=== PATIENT | female | born 1995 | race Caucasian/White ===

== ENCOUNTER 2017-07-07 20:55 | Observation (INO) | payer BC, SELFPAY ==
[2017-07-07 21:49] VITALS: BP 105/59; PULSE 85; RESP 20; TEMP 37.1; O2SAT 96; BMI 26.6
[2017-07-07 22:00] LABS: UTC Influenza A Antigen Negative (Negative); UTC Influenza B Antigen Negative (Negative)
--- NOTE | 2017-07-07 22:21 | HMH.EDUTC ---
[facility] [place] Disposition Clinical Impression: Abdominal pain Qualifiers: Abdominal location: unspecified location Qualified Code(s): R10.9 - Unspecified abdominal pain Disposition: Still a Patient Condition on Discharge: Good Time of Disposition: 22:43 (transfer to ER bed 11) Medical Decision Making Vital Signs: 07/07/17 21:49 Temperature 98.7 F Temperature Source Temporal Artery Scan Pulse Rate [Left Brachial] 85 Respiratory Rate 20 Blood Pressure [Left Arm] 105/59 Blood Pressure Mean [Left Arm] 74 Blood Pressure Source [Left Arm] Automatic Cuff Blood Pressure Position [Left Arm] Sitting 02 Sat by Pulse Oximetry 96 Oxygen Delivery Method Room Air - Lab Data Lab results reviewed: Yes: I reviewed the patient's lab results. Lab Results 07/07/17 21:40: Influenza Type A Ag Negative, Influenza Type B Ag Negative 07/07/17 22:32: Urine Color Yellow, Urine Appearance Clear, Urine pH 6.0, Ur Specific [place] 1.025, Urine Protein Negative, Urine Glucose (UA) Negative, Urine Ketones Negative, Urine Blood Negative, Urine Nitrate Negative, Urine Bilirubin Negative, Urine Urobilinogen 1, Ur Leukocyte Esterase Negative, Tst Clinic Negative - Zain Inquiry Pt receiving controlled substance: No - Reevaluation(s) Time: 10:35 Reevaluation #1: Discussed symptoms, exam, results and possible differentials again with patient. Agreeable to transfer to ER for further evaluation. Report called to Vanessa. Room 11 available. [facility] [place] HPI - General Stated complaint: Chills, fever, aches, stomach pain Time Seen by Provider: 07/07/17 22:21 Mode of Arrival: Ambulatory Source of Information: Patient Limitations: No Limitations Description of Symptoms (Recalled from Triage Doc. by RN): C/O FLU-LIKE SYMPTOMS HEENT Symptoms (Recalled from RN notes): No Resp Symptoms (Recalled from RN notes): Yes (FLU-LIKE SYMPTOMS) Skin Symptoms (Recalled from RN notes): No MS Symptoms (Recalled from RN notes): No Functional Status (Recalled from RN notes): N/A - History of Present Illness Provider Complaint: c/o subjective fever, aches, chills, dizziness, abdominal pain. Woke up this morning with mild abdominal pain. Didn't think much of it. 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 Abdominal pain progressing as well. Primarily on right side but when right side worsens, left side starts to hurt as well. Fluctuating in intensity. Took a nap when she got home. Was awoken due to abdominal pain. Has since vomited twice. Feeling feverish now and since being awake, dizziness with any movement. LMP 3 weeks ago. Hx of ovarian cysts but reports that pain was different and much worse. No UTI symptoms. Pain worse with movement. Spouse reports she couldn't even take the speed bumps on the way here it was that bad . Abdominal pain currently 10/12. Described as like a knife - Related Data Allergies Allergy/AdvReac Type Severity Reaction Status Date / Time Sulfa (Sulfonamide Allergy Mild I-RASH Verified 07/07/17 22:23 Antibiotics) [SULFA (SULFONAMIDE ANTIBIOTICS)] - Worker's Comp Is this a Worker's Comp case?: No [facility] History I have reviewed the patient's past medical history: Yes Medical History: Denies:: Cancer, Diabetes Mellitus Type 1, Diabetes Mellitus Type 2, Hypertension, MRSA Laterality Cases: Bilateral: Tonsillectomy Amputation: No Fractures: No - *Social History Smoking Status: Never smoker Alcohol Intake: never - Psychiatric History Expresses thoughts of harming self/others: None Suicide Plan Description: No Plan ROS Obtained: Yes Systems reviewed as appropriate & no additional complaints - Constitutional Constitutional: Reports as per HPI, Reports poor appetite - Eyes Eyes: Denies eye discharge - ENT Ears, Nose, Mouth, and Throat: Denies otalgia, Denies nasal congestion, Denies nasal discharge, Denies sore throat - Cardiovascular Cardiovascular: Denies chest pain, Denies irre
--- NOTE | 2017-07-07 22:31 | ED_ITS ---
[facility] [place] Clinical Impression: Abdominal pain Qualifiers: Abdominal location: unspecified location Qualified Code(s): R10.9 - Unspecified abdominal pain Disposition: Still a Patient Condition on Discharge: Good Time of Disposition: 22:43 (transfer to ER bed 11) Medical Decision Making Vital Signs: 07/07/17 21:49 Temperature 98.7 F Temperature Source Temporal Artery Scan Pulse Rate [Left Brachial] 85 Respiratory Rate 20 Blood Pressure [Left Arm] 105/59 Blood Pressure Mean [Left Arm] 74 Blood Pressure Source [Left Arm] Automatic Cuff Blood Pressure Position [Left Arm] Sitting 02 Sat by Pulse Oximetry 96 Oxygen Delivery Method Room Air - Lab Data Lab results reviewed: Yes: I reviewed the patient's lab results. Lab Results 07/07/17 21:40: Influenza Type A Ag Negative, Influenza Type B Ag Negative 07/07/17 22:32: Urine Color Yellow, Urine Appearance Clear, Urine pH 6.0, Ur Specific [place] 1.025, Urine Protein Negative, Urine Glucose (UA) Negative, Urine Ketones Negative, Urine Blood Negative, Urine Nitrate Negative, Urine Bilirubin Negative, Urine Urobilinogen 1, Ur Leukocyte Esterase Negative, Tst Clinic Negative - Zain Inquiry Pt receiving controlled substance: No - Reevaluation(s) Time: 10:35 Reevaluation #1: Discussed symptoms, exam, results and possible differentials again with patient. Agreeable to transfer to ER for further evaluation. Report called to Vanessa. Room 11 available. [facility] [place] - General Stated complaint: Chills, fever, aches, stomach pain Time Seen by Provider: 07/07/17 22:21 Mode of Arrival: Ambulatory Source of Information: Patient Limitations: No Limitations Description of Symptoms (Recalled from Triage Doc. by RN): C/O FLU-LIKE SYMPTOMS HEENT Symptoms (Recalled from RN notes): No Resp Symptoms (Recalled from RN notes): Yes (FLU-LIKE SYMPTOMS) Skin Symptoms (Recalled from RN notes): No MS Symptoms (Recalled from RN notes): No Functional Status (Recalled from RN notes): N/A - History of Present Illness Provider Complaint: c/o subjective fever, aches, chills, dizziness, abdominal pain. Woke up this morning with mild abdominal pain. Didn't think much of it. 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 Abdominal pain progressing as well. Primarily on right side but when right side worsens, left side starts to hurt as well. Fluctuating in intensity. Took a nap when she got home. Was awoken due to abdominal pain. Has since vomited twice. Feeling feverish now and since being awake, dizziness with any movement. LMP 3 weeks ago. Hx of ovarian cysts but reports that pain was different and much worse. No UTI symptoms. Pain worse with movement. Spouse reports she couldn't even take the speed bumps on the way here it was that bad . Abdominal pain currently 10/12. Described as like a knife - Related Data Allergies Allergy/AdvReac Type Severity Reaction Status Date / Time Sulfa (Sulfonamide Allergy Mild I-RASH Verified 07/07/17 22:23 Antibiotics) [SULFA (SULFONAMIDE ANTIBIOTICS)] - Worker's Comp Is this a Worker's Comp case?: No [facility] History I have reviewed the patient's past medical history: Yes Medical History: Denies:: Cancer, Diabetes Mellitus Type 1, Diabetes Mellitus Type 2, Hypertension, MRSA Laterality Cases: Bilateral: Tonsillectomy Amputation: No Fractures: No - *Social Hist
[2017-07-07 22:37] LABS: Apearance,Urine Clear (Clear); Color,Urine Yellow (Yellow)
[2017-07-07 22:38] LABS: Bilirubin,Urine Negative (Negative); Blood, Urine Negative (Negative); Glucose,Urine (UA) Negative (Negative); Ketones,Urine Negative (Negative); Protein,Urine Negative (Negative); Specific Gravity, Urine 1.025 (1.005-1.030); UTC Leukocyte Esterase,Urine Negative (Negative); UTC Nitrate,Urine Negative (Negative); UTC Pregnancy Test, Urine Negative (Negative); Urobilinogen,Urine 1 EU/dl (0.2)
--- NOTE | 2017-07-07 22:41 | PC.NURSE ---
PT BEING SENT TO ER FOR FURTHER EVALUATION.
[2017-07-07 22:48] VITALS: BP 130/74; PULSE 104; RESP 16; TEMP 37.1; O2SAT 98; BMI 26.6
--- NOTE | 2017-07-07 23:06 | HMH.EDNVD ---
ED Disposition Clinical Impression: Abdominal pain Qualifiers: Abdominal location: right lower quadrant Qualified Code(s): R10.31 - Right lower quadrant pain Acute appendicitis Qualifiers: Acute appendicitis type: unspecified acute appendicitis type Qualified Code(s): K35.80 - Unspecified acute appendicitis Disposition: Admitted As Inpatient Condition on Discharge: Good Instructions: DI for Acute Abdomen - Critical Care Critical Care Time: No Attestation: On 07/07/17, the high probability of a clinically significant, sudden or life threatening deterioration of the following system(s) required my full and direct attention, intervention and personal management. The time I documented below is in addition to time spent performing reported procedures but includes the following listed in this critical care notation. Medical Decision Making - Medical Records Medical records reviewed: Yes: I reviewed the patient's medical records. Vital Signs: 07/07/17 21:49 07/07/17 22:48 Temperature 98.7 F 98.8 F Temperature Source Temporal Artery Scan Oral Pulse Rate [Left Brachial] 85 104 H Respiratory Rate 20 16 Blood Pressure [Left Arm] 105/59 130/74 Blood Pressure Mean [Left Arm] 74 92 Blood Pressure Source [Left Arm] Automatic Cuff Blood Pressure Position [Left Arm] Sitting 02 Sat by Pulse Oximetry 96 98 Oxygen Delivery Method Room Air Room Air - Lab Data Lab results reviewed: Yes: I reviewed the patient's lab results. Lab Results 07/07/17 21:40: Influenza Type A Ag Negative, Influenza Type B Ag Negative 07/07/17 22:32: Urine Color Yellow, Urine Appearance Clear, Urine pH 6.0, Ur Specific [place] 1.025, Urine Protein Negative, Urine Glucose (UA) Negative, Urine Ketones Negative, Urine Blood Negative, Urine Nitrate Negative, Urine Bilirubin Negative, Urine Urobilinogen 1, Ur Leukocyte Esterase Negative, Tst Clinic Negative 07/07/17 23:00: WBC 12.0 H, RBC 4.36, Hgb 12.4, Hct 37.2, MCV 85.3, MCH 28.5, MCHC 33.4, RDW 13.1, Plt Count 188, MPV 8.6, Neut % (Auto) 68.4, Lymph % (Auto) 25.9, Hendry % (Auto) 4.8, Eos % (Auto) 0.8, Baso % (Auto) 0.2, Neut # (Auto) 8.2 H, Lymph # (Auto) 3.1, Hendry # (Auto) 0.6, Eos # (Auto) 0.1, Baso # (Auto) 0.0 07/07/17 23:00: Sodium 138, Potassium 3.5, Chloride 102, Carbon Dioxide 27, Anion Gap 12.5, BUN 13, Creatinine 0.83, Estimated Creat Clear 129, Estimated GFR 86, Est GFR ( Amer) 104, Glucose 98, Calcium 8.8, Total Bilirubin 0.6, AST 10 L, ALT 31, Alkaline Phosphatase 112, Total Protein 7.2, Albumin 3.7, Globulin 3.5 H, Albumin/Globulin Ratio 1.1, Amylase 42, Lipase 93 Result diagrams: 07/07/17 23:00 07/07/17 23:00 Orders (Tests/Meds): ORDERS Category Date Time Status CT abdomen pelvis wo con Stat Cat Scan 07/07/17 23:07 Taken - CT Data CT Scan: Abdomen, Pelvis Time Received: 00:[address] Reviewed: Yes: I have viewed the radiologist's interpretation Preliminary Findings: Abnormal - Physician Consults Physician Consulted: gina Reason -: Admission - Zain Inquiry Pt receiving controlled substance: No Nausea/Vomiting/Diarrhea HPI - General Chief complaint: Abdominal Pain Stated complaint: Chills, fever, aches, stomach pain Time Seen by Provider: 07/07/17 22:21 Mode of Arrival: Ambulatory Source of Information: Patient Limitations: No Limitations Description of Symptoms (Recalled from ER Triage Doc. by RN): C/O FLU-LIKE SYMPTOMS - History of Present Illness HPI Narrative: progressive abd pain with rt lower abd pain with dec po intake complaint: nausea, abdominal pain Onset (ago): day(s) Associated Abdominal Pain: Yes Location of pain: RLQ Severity: moderate - Related Data Home Medications Medication Instructions Recorded Confirmed No Known Home Medications [No 07/07/17 07/07/17 Known Home Medications] Allergies Allergy/AdvReac Type Severity Reaction Status Date / Time Sulfa (Sulfonamide Allergy Mild I-RASH Verifi
--- NOTE | 2017-07-07 23:07 | CT_ITS ---
CT abdomen pelvis wo con COMPARISON: CT scan abdomen pelvis 03/31/2017 HISTORY: Upper and lower abdominal pain some nausea and vomiting TECHNIQUE: Multiple axial scans obtained from hemidiaphragms to the pelvic floor and were performed without IV or oral contrast. Sagittal and coronal reformats were evaluated as well. FINDINGS: The lower lung perry are clear. The liver spleen stomach pancreas and gallbladder appear normal. The adrenal glands are normal. The kidneys are normal size and there are no calculi and is no obstructive uropathy. Small bowel appears normal. A retrocecal appendix is identified measuring 1 cm in diameter with very subtle periappendiceal haziness noted. There is a moderate amount stool in the ascending transverse and descending colon. There is a curious thin longitudinal stranding of soft tissue extending from the superior border of the urinary bladder to the umbilicus likely a urachal remnant. The uterus is normal. There is a small amount amount of fluid in the cul-de-sac slightly more than expected due to physiologic causes. IMPRESSION: 1. Somewhat subtle findings suggesting possibility of early appendicitis and suggest clinical correlation 2. Probable urachal remnant, I basically agree with the [facility] report.
[2017-07-07 23:16] LABS: Basophils % 0.2 % (0.1-2.0); Eosinophils # 0.1 K/mm3 (0.0-0.4); Eosinophils % 0.8 % (0.1-12.0); Hematocrit 37.2 % (37.0-47.0); Hemoglobin 12.4 g/dL (12.2-16.2); Lymphocytes # 3.1 K/mm3 (0.7-4.5); Lymphocytes % 25.9 K/mm3 (10-50); Mean Corpuscular HGB Conc 33.4 g/dL (31.8-35.4); Mean Corpuscular Hemoglobin 28.5 pg (27.0-31.2); Mean Corpuscular Volume 85.3 fl (81-99); Mean Platelet Volume 8.6 fl (7.4-10.4); Monocytes # 0.6 K/mm3 (0.1-1.0); Monocytes % 4.8 % (1.7-9.3); Neutrophils # 8.2 K/mm3 (1.8-7.8); Neutrophils % 68.4 % (37.0-80.0); Platelet Count 188 K/mm3 (142-424); Red Blood Count 4.36 M/mm3 (4.20-5.40); Red Cell Distribution Width 13.1 % (11.5-17.5)
[2017-07-07 23:32] LABS: Alanine Aminotransferase 31 U/L (12-78); Albumin Level 3.7 gm/dL (3.4-5.0); Albumin/Globulin Ratio 1.1 (1.1-1.8); Alkaline Phosphatase 112 U/L (46-116); Amylase 42 U/L (25-125); Anion Gap 12.5 mEq/L (5-15); Aspartate Amino Transferase 10 U/L (15-37); Bilirubin,Total 0.6 mg/dL (0.2-1.0); Blood Urea Nitrogen 13 mg/dL (7-18); Calcium 8.8 mg/dL (8.5-10.1); Carbon Dioxide 27 mmol/L (21.0-32.0); Chloride 102 mmol/L (98-107); Creatinine Clearance Estimated 129 mL/min (0-300); Creatinine,Serum 0.83 mg/dL (0.55-1.02); Estimated Glomerular Filt Rate 86 ml/min (>60); GFR (African American) 104 ML/MIN (>60); Globulin 3.5 gm/dl (1.3-3.2); Glucose 98 mg/dL (74-106); Lipase 93 u/L (73-393); Potassium 3.5 mmoL/L (3.5-5.1); Sodium 138 mmol/L (136-145); Total Protein,Serum 7.2 gm/dL (6.4-8.2)
[2017-07-08] VITALS (25 sets, daily range): BP systolic 92–149; BP diastolic 50–78; PULSE 54–94; RESP 14–18; TEMP 36.1–43; O2SAT 95–100; BMI 26.3
--- NOTE | 2017-07-08 00:01 | PC.NURSE ---
DANIELLE CALLED, DR CHISHOLM PAGED
--- NOTE | 2017-07-08 00:05 | PC.NURSE ---
DR WHITE SPEAKING WITH DR CHISHOLM.
--- NOTE | 2017-07-08 04:06 | PC.NURSE ---
PATIENT ADMITTED THIS SHIFT WITH ABD PAIN. SHE SEEMS TO HAVE RESTED WELL SINCE SHE GOT TO THE FLOOR. SHE HAS C/O NAUSEA X1 AND RECEIVED PRN ZOFRAN, WHICH HELPED. SHE ALSO HAS C/O ABD PAIN X1 RATING IT A 6/10 AND JUST RECENTLY RECEIVED PRN PAIN MEDICATION, WHICH WILL BE REASSESSED SHORTLY. PATIENT IS CURRENTLY NPO. SHE IS RESTING IN BED WITH EYES CLOSED AND SIGNIFICANT OTHER AT BEDSIDE AT THIS TIME. NO OTHER PROBLEMS NOTED. VSS. WILL CONTINUE TO MONITOR. SAFETY MEASURES IN PLACE, CALL LIGHT IN REACH.
--- NOTE | 2017-07-08 06:52 | P.HP_ITS ---
HPI HPI: Patient is a pleasant 21-year-old white female. She states that yesterday she had felt generally ill. She described some fevers and chills. She had tried to take a nap midday yesterday and then awoke with sharp stabbing abdominal pain. This is mostly in the upper abdomen. Throughout the day yesterday became more localized to the right abdomen. She presented to the emergency department in the very late evening yesterday on 07/07/17. She was found to have a mild leukocytosis and CT scan without contrast revealed findings consistent with acute appendicitis with a 1 cm retrocecal appendix with thickening of the wall and periappendiceal stranding. Patient was admitted for inpatient management and planned appendectomy. [facility] History I have reviewed the patient's past medical history: Yes Medical History: Denies:: Cancer, Diabetes Mellitus Type 1, Diabetes Mellitus Type 2, Hypertension, Internal Pacemaker, MRSA Laterality Cases: Bilateral: Tonsillectomy Other Surgeries: No: Pacemaker Amputation: No Fractures: No - *Social History Educational Level: Completed College Smoking Status: Never smoker Alcohol Intake: never Occupational Status: employed Housing: house Household Members: spouse - Psychiatric History Expresses thoughts of harming self/others: None Suicide Plan Description: No Plan *Family Hx:: Bleeding Disorder, Diabetes, Stroke, Thyroid Disorder Review of Systems - Constitutional Reports body ache(s), Reports chills, Reports fever(s) - Eyes Denies change in vision - ENT Denies dizziness - *Cardiovascular Denies chest pain - *Respiratory Denies shortness of breath - *Gastrointestinal Reports abdominal pain, Reports bloating - *Genitourinary Denies abnormal periods - *Musculoskeletal Denies abnormal walking - *Neurologic Denies headache(s) Meds Home Medications Medication Instructions Recorded Confirmed Type No Known Home Medications [No 07/07/17 07/07/17 History Known Home Medications] Allergies Allergy/AdvReac Type Severity Reaction Status Date / Time Sulfa (Sulfonamide Allergy Mild I-RASH Verified 07/07/17 22:23 Antibiotics) [SULFA (SULFONAMIDE ANTIBIOTICS)] Exam Vital signs and Labs for Last 24 Hours: Temp Pulse Resp BP Pulse Ox 98.9 F 91 H 16 101/60 98 07/08/17 04:03 07/08/17 04:03 07/08/17 04:03 07/08/17 04:03 07/08/17 04:03 I & O for Last 24 hours: Intake & Output 07/05/17 07/06/17 07/07/17 07/08/17 11:59 11:59 11:59 11:59 Weight 170 lb - Constitutional no acute distress - *Routine Respiratory Exam Present: CTA bilaterally - *Routine Cardiovascular Exam Present: RRR, Normal S1, Normal S2 - *Routine Abdominal Exam Present: soft, tenderness, distended Assessment and Plan - Assessment and plan all Dx Assessment and Plan for all problems:: Patient has signs and symptoms with radiographic evidence consistent with acute appendicitis. Plan for appendectomy this morning. Attempted laparoscopic with possible open.
--- NOTE | 2017-07-08 06:52 | PC.NURSE ---
called earlier stating that he wanted to do surgery on this patient at 0730 this am.He asked that I let surgery team know.Fer Kapoor,Ekta Boucher, and Luann Mcguire notified.Luann stated that Victoria would be innovations paraprofessional at 0700.She would text her and let her know of the surgery.
--- NOTE | 2017-07-08 06:55 | P.PN_ITS ---
[facility] Anesthesia Checklist - Patient Identification Patient Identification: Arm Band, Verbal (Name & ) - Structural Data Admitted From: Inpatient Planned Operative Procedure/s: appy Consent for Planned Operative Procedure(s) Verified: Yes Verified Documents: Surgical Consent - Chart Verification Results Verified: CBC, BMP - Additional verifications Patient : No Anesthesia Reactions: No Hx Blood Transfusions: No Blood Transfusion Reaction: No Cephalosporin Allergy: No Previous Colonoscopy: No - Cardiovascular Assessment Heart Sounds: S1 & S2 Pulse Strength: Baseline Pulse Rhythm: Regular - Airway Assessment C-Spine Mobility Assessed: Yes TMJ Mobility Assessed: Yes Dentition: Good Dentition - Neurological Assessment Level of Consciousness: Awake, Alert, Appropriate Hx Seizures: No Numbness or tingling in extremities: No - Anesthesia Plan Anesthesia Risk discussed: Yes Anesthesia Type: General [facility] Anesthesia HX I have reviewed the patient's past medical history: Yes Medical History: Denies:: Cancer, Diabetes Mellitus Type 1, Diabetes Mellitus Type 2, Hypertension, Internal Pacemaker, MRSA Laterality Cases: Bilateral: Tonsillectomy Other Surgeries: No: Pacemaker Amputation: No Fractures: No *Family Hx:: Bleeding Disorder, Diabetes, Stroke, Thyroid Disorder
[2017-07-08 07:41] LABS: Basophils % 0.2 % (0.1-2.0); Eosinophils # 0.1 K/mm3 (0.0-0.4); Eosinophils % 0.9 % (0.1-12.0); Hematocrit 34.1 % (37.0-47.0); Hemoglobin 11.3 g/dL (12.2-16.2); Lymphocytes # 2.9 K/mm3 (0.7-4.5); Mean Corpuscular HGB Conc 33.1 g/dL (31.8-35.4); Mean Corpuscular Hemoglobin 28.4 pg (27.0-31.2); Mean Corpuscular Volume 85.9 fl (81-99); Mean Platelet Volume 8.4 fl (7.4-10.4); Monocytes # 0.5 K/mm3 (0.1-1.0); Monocytes % 5.8 % (1.7-9.3); Neutrophils # 4.2 K/mm3 (1.8-7.8); Neutrophils % 55.1 % (37.0-80.0); Platelet Count 157 K/mm3 (142-424); Red Blood Count 3.97 M/mm3 (4.20-5.40); Red Cell Distribution Width 13.3 % (11.5-17.5); White Blood Count 7.6 K/mm3 (4.8-10.8)
[2017-07-08 07:42] LABS: Anion Gap 8.2 mEq/L (5-15); Blood Urea Nitrogen 12 mg/dL (7-18); Carbon Dioxide 28 mmol/L (21.0-32.0); Chloride 103 mmol/L (98-107); Creatinine Clearance Estimated 141 mL/min (0-300); Creatinine,Serum 0.76 mg/dL (0.55-1.02); Estimated Glomerular Filt Rate 95 ml/min (>60); GFR (African American) 115 ML/MIN (>60); Glucose 93 mg/dL (74-106); Potassium 3.2 mmoL/L (3.5-5.1); Sodium 136 mmol/L (136-145)
--- NOTE | 2017-07-08 07:53 | PC.NURSE ---
pt off unit in surgery at this time.
--- NOTE | 2017-07-08 08:34 | P.OP_ITS ---
Date of procedure: 07/08/17 Pre-op Diagnosis:: Acute appendicitis Post-op diagnosis:: same Procedure performed:: Laparoscopic appendectomy Surgeon:: Lyle Cerrato MD AUTO TECHNICIAN:: Charlie Kapoor Anesthesia: GLO Estimated blood loss (mL): 10 Clinical Note:: Patient is a pleasant 21-year-old white female. Yesterday she felt generally ill. She did have some fevers and chills. She thought she may have the flu. She went to work and upon returning from work took a nap. She awoke with sharp stabbing knifelike pain in the upper abdomen. This persisted and localized to the right abdomen. She presented to the urgent treatment center initially and then was transferred to the ER in the very late evening of 07/07/17. She underwent workup including CT scan and blood work. She is found to have a mild leukocytosis. CT scan without contrast revealed findings of acute appendicitis with a retrocecal appendix. She was admitted for inpatient management and planned appendectomy. Operative findings:: Patient had a thickened inflamed appendix and a non-retrocecal location. Mostly mid body of the appendix was markedly inflamed. Operative note:: Consent was obtained and patient was taken to the operating room. She was given preoperative intravenous antibiotics. She was positioned in a supine position. General anesthesia was induced via endotracheal tube. Goodson catheter was placed. Abdomen was prepped and draped. Subumbilical skin incision was made and while performing abdominal wall lift Veress needle was inserted. CO2 pneumoperitoneum was achieved to 15 mmHg. 10/12 mm trocar was inserted at the umbilicus. Intraperitoneal contents were visualized. She was positioned in Trendelenburg and left side down. 5 mm trocar was inserted in the suprapubic location. 5 mm trocar was inserted in the right upper abdomen. 10 mm laparoscope was replaced with the 5 mm 30? laparoscope. The appendix was easily identified at the tip of the cecum. It was grasped with an endoscopic Rikki. Mesoappendix was divided with a [employer] ultrasonic harmonic zainab with care taken to coagulate the appendiceal artery in the process. Dissection was carried down to the base of the appendix. The appendix was amputated at its base with an endoscopic SOLOMON linear cutting stapling device. The appendix was placed within an Endo Catch retrieval device and removed from the peritoneal cavity via the umbilical trocar site. Pericecal location and pelvis were irrigated and aspirated until clear. Trochars were removed. CO2 pneumoperitoneum was evacuated. Fascia at the umbilicus was closed with a 0 Vicryl suture. Local anesthetic was infiltrated. Skin incisions were closed with 4-0 Monocryl in a subcuticular fashion. Steri-Strips and clean dry sterile dressings were applied. Pathology: other (Appendix) Condition: stable Disposition: PACU Specimens:: Appendix Complications:: None immediate
--- NOTE | 2017-07-08 08:37 | HMH.ANESI ---
[facility] Anesthesia Record Part I Intake, IV Amount: 700 Estimated blood loss (mL): 10 Urine output (mL): 25 Blood Products used (#): none Blood Pressure: 149/78 SaO2: 95 Pulse Rate: 84 Respiratory Rate: 18 Temperature: 97.0 F Patient is:: Drowsy Stable to PACU at:: 08:36
--- NOTE | 2017-07-08 08:38 | HMH.ANESII ---
[facility] Anesthesia Record Part II Discharge Time: 09:06 Destination: Nursing Department PACU nurse assessment reviewed?: Yes Patient Condition:: Good Anesthesia Complications:: None
--- NOTE | 2017-07-08 08:59 | SUR.OPER ---
0825-cleary catheter removed at this time.
[2017-07-08 10:10] LABS: Microscopic, Urine URINE MICROSCOPIC (MICROSCOPIC)
[2017-07-08 10:14] LABS: Appearance,Urine SL CLOUDY (Clear); Bilirubin,Urine Negative (Negative); Blood, Urine TRACE-L (Negative); Color,Urine YELLOW (Yellow); Glucose,Urine (UA) Negative (Negative); Ketones,Urine Negative (Negative); Leukocyte Esterase,Urine Negative (Negative); Nitrate,Urine Negative (Negative); PH,Urine 5.5 (5.0-8.5); Protein,Urine Negative (Negative); Specific Gravity, Urine >= 1.030 (1.005-1.030); Urobilinogen,Urine 0.2 EU/dl (0.2)
[2017-07-08 10:24] LABS: Bacteria,Urine 4+ /lpf; Mucus,Urine 4+ /lpf
--- NOTE | 2017-07-08 13:39 | P.CONPHA_ITS ---
[facility] Pharmacy VTE Monitoring - Patient Demographics Admission date: 07/08/17 Report Date: 07/08/17 Time: 13:38 Allergies/Adverse Reactions: Patient Allergies Sulfa (Sulfonamide Antibiotics) [SULFA (SULFONAMIDE ANTIBIOTICS)] Allergy (Mild , Verified 07/07/17 22:23) I-RASH Height: 1.7 m Weight: 77.111 kg Patient Problems: Current Active Problems Abdominal pain (Acute) Acute appendicitis (Acute) - VTE Risk Labs: VTE Related Lab Results Hgb 11.3 g/dL (12.2-16.2) L 07/08/17 07:20 Hct 34.1 % (37.0-47.0) L 07/08/17 07:20 Plt Count 157 K/mm3 (142-424) 07/08/17 07:20 BUN 12 mg/dL (7-18) 07/08/17 07:20 Creatinine 0.76 mg/dL (0.55-1.02) 07/08/17 07:20 Estimated Creat Clear 141 mL/min (0-300) 07/08/17 07:20 Was VTE Risk Assessment Performed: Yes VTE Score: 0 VTE Risk Level: Very Low Risk - Prophylaxis VTE Prophylaxis Ordered?: Yes Types of VTE Prophylaxis: TEDS Knee High Location of Applied Device: Bilateral Lower Extremeties
[2017-07-09] VITALS: BP 95/52; PULSE 97; RESP 20; TEMP 36.8; O2SAT 99
[2017-07-09 04:00] VITALS: BP 96/41; PULSE 63; RESP 18; TEMP 36.7; O2SAT 97
--- NOTE | 2017-07-09 05:38 | PC.NURSE ---
PATIENT HAS SLEPT WELL THIS SHIFT. DRESSINGS X3 TO ABD CDI. SHE HAS C/O PAIN X2. FIRST C/O PAIN SHE RECEIVED PRN MORPHINE WHICH SHE STATED ONLY LASTED ABOUT 1 HOUR. HER SECOND C/O PAIN SHE RECEIVED PRN NORCO AND HASN'T HAD ANY MORE C/O PAIN SINCE. PATIENT AMBULATES TO BATHROOM WITH STANDBY ASSIST AND DOES WELL. PATIENT'S BP HAS RAN SLIGHTLY HYPOTENSIVE THROUGHOUT SHIFT, BUT HAS BEEN CONSISTANT. PATIENT IS CURRENTLY IN BED ASLEEP. NO OTHER PROBLEMS NOTED AT THIS TIME. VSS. WILL CONTINUE TO MONITOR. SAFETY MEASURES IN PLACE, CALL LIGHT IN REACH.
[2017-07-09 08:00] VITALS: BP 95/52; PULSE 80; RESP 18; TEMP 36.7; O2SAT 98
[2017-07-09 09:18] VITALS: O2SAT 98
--- NOTE | 2017-07-09 10:40 | HMH.DCSUM ---
General - General Admission date: 07/08/17 Discharge date: 07/09/17 HPI HPI: Patient is a pleasant 21-year-old white female. In the morning of 07/07/17 she felt generally ill. She described some fevers and chills. After work she had tried to take a nap and then awoke with sharp stabbing abdominal pain. This was mostly in the upper abdomen. Throughout the day yesterday became more localized to the right abdomen. She presented to the emergency department in the very late evening on 07/07/17. She was found to have a mild leukocytosis and CT scan without contrast revealed findings consistent with acute appendicitis with a 1 cm retrocecal appendix with thickening of the wall and periappendiceal stranding. Patient was admitted for inpatient management and planned appendectomy. Objective Vital signs: Temp Pulse Resp BP Pulse Ox 98.0 F 80 18 95/52 98 07/09/17 08:00 07/09/17 08:00 07/09/17 08:00 07/09/17 08:00 07/09/17 08:00 no acute distress - *Routine Cardiovascular Exam Present: RRR - *Routine Abdominal Exam Present: soft, tenderness Hospital Course Hospital Course: Patient was admitted after being seen in the emergency department in the very skid man hours of 07/08/17. He was given intravenous antibiotics. Early the following morning, a few hours after admission, she was taken to the operating room and underwent laparoscopic appendectomy. She was found to have a distended indurated acutely inflamed appendix. Please see operative dictation for complete details. Postoperatively she was admitted for continuation of perioperative antibiotics. She is given a bland diet. Her previously noted bloating and resolved and she tolerated bland diet without any nausea. She was continued on perioperative Unasyn. The following morning she was feeling well. Arrangements were made for discharge home at this time. Results Labs on day of discharge: Preliminary micro results at discharge 07/08/17 07:35 Urine Culture - Preliminary Urine,[place] NO GROWTH AFTER 24 HOURS DS: Diagnosis - Discharge Diagnosis (1) Acute appendicitis Status: Acute Meds Home Medications Medication Instructions Recorded Confirmed Type No Known Home Medications [No 07/07/17 07/07/17 History Known Home Medications] Allergies Allergy/AdvReac Type Severity Reaction Status Date / Time Sulfa (Sulfonamide Allergy Mild I-RASH Verified 07/07/17 22:23 Antibiotics) [SULFA (SULFONAMIDE ANTIBIOTICS)] Discharge Plan - Patient Discharge Instructions ACTIVITY: No heavy lifting DIET: advance to your usual diet - Follow up Plan Follow up with: Lyle Cerrato MD [Staff Physician] - 2 weeks Disposition: Home, Self-Longterm Medications: Home Medications Medication Instructions Recorded Confirmed Type No Known Home Medications [No 07/07/17 07/07/17 History Known Home Medications] Prescriptions/Medication Reconciliation: New Hydrocod/Acet 5/325 mg [[place] 5/325mg tablet] 1 - 2 tab PO Q6HP PRN #21 tab PRN Reason: Moderate Pain Continue No Known Home Medications [No Known Home Medications]
--- NOTE | 2017-07-09 10:44 | P.DS_ITS ---
General - General Admission date: 07/08/17 Discharge date: 07/09/17 HPI HPI: Patient is a pleasant 21-year-old white female. In the morning of 07/07/17 she felt generally ill. She described some fevers and chills. After work she had tried to take a nap and then awoke with sharp stabbing abdominal pain. This was mostly in the upper abdomen. Throughout the day yesterday became more localized to the right abdomen. She presented to the emergency department in the very late evening on 07/07/17. She was found to have a mild leukocytosis and CT scan without contrast revealed findings consistent with acute appendicitis with a 1 cm retrocecal appendix with thickening of the wall and periappendiceal stranding. Patient was admitted for inpatient management and planned appendectomy. Objective Vital signs: Temp Pulse Resp BP Pulse Ox 98.0 F 80 18 95/52 98 07/09/17 08:00 07/09/17 08:00 07/09/17 08:00 07/09/17 08:00 07/09/17 08:00 no acute distress - *Routine Cardiovascular Exam Present: RRR - *Routine Abdominal Exam Present: soft, tenderness Hospital Course Hospital Course: Patient was admitted after being seen in the emergency department in the very shuffle board operator hours of 07/08/17. He was given intravenous antibiotics. Early the following morning, a few hours after admission, she was taken to the operating room and underwent laparoscopic appendectomy. She was found to have a distended indurated acutely inflamed appendix. Please see operative dictation for complete details. Postoperatively she was admitted for continuation of perioperative antibiotics. She is given a bland diet. Her previously noted bloating and resolved and she tolerated bland diet without any nausea. She was continued on perioperative Unasyn. The following morning she was feeling well. Arrangements were made for discharge home at this time. Results Labs on day of discharge: Preliminary micro results at discharge 07/08/17 07:35 Urine Culture - Preliminary Urine,[place] NO GROWTH AFTER 24 HOURS DS: Diagnosis - Discharge Diagnosis (1) Acute appendicitis Status: Acute Meds Home Medications Medication Instructions Recorded Confirmed Type No Known Home Medications [No 07/07/17 07/07/17 History Known Home Medications] Allergies Allergy/AdvReac Type Severity Reaction Status Date / Time Sulfa (Sulfonamide Allergy Mild I-RASH Verified 07/07/17 22:23 Antibiotics) [SULFA (SULFONAMIDE ANTIBIOTICS)] Discharge Plan - Patient Discharge Instructions ACTIVITY: No heavy lifting DIET: advance to your usual diet - Follow up Plan Follow up with: Lyle Crerato MD [Staff Physician] - 2 weeks Disposition: Home, Self-Senior Living Medications: Home Medications Medication Instructions Recorded Confirmed Type No Known Home Medications [No 07/07/17 07/07/17 History Known Home Medications] Prescriptions/Medication Reconciliation: New Hydrocod/Acet 5/325 mg [[place] 5/325mg tablet] 1 - 2 tab PO Q6HP PRN #21 tab PRN Reason: Moderate Pain Continue No Known Home Medications [No Known Home Medications]
== END 2017-07-09 11:45 | disposition home or self-care (01) ==
LOC: UTC 22:43 → ER 22:44 → 2ND 07-08 00:56
PROVIDERS: Nurse Practitioner Family; Admitting Provider Surgery; Emergency Provider Emergency Medicine; Family Provider Family Medicine; Visit Provider Surgery
PROC: 0DTJ4ZZ Resection of Appendix, Percutaneous Endoscopic Approach (ICD-10-PCS; CPT 44970; principal; 2017-07-08 07:30)
DX: K35.89 Other acute appendicitis (principal)
CPT/HCPCS: 44970; 36415; 74176; 80048; 80053; 81001; 81003; 81025; 82150; 83690; 85025; 87086; 87804; 96374; 96375; 99282; G0378; J0131; J2270; J2405; J2710

== ENCOUNTER 2020-12-02 10:12 | Emergency (ER) | payer BC, SELFPAY ==
[2020-12-02 10:55] VITALS: BP 111/65; PULSE 79; RESP 18; TEMP 36.9; O2SAT 100; BMI 27.4
[2020-12-02 11:17] LABS: UTC Strep Screen (Rapid) Negative (Negative)
--- NOTE | 2020-12-02 11:18 | HMH.EDUTC ---
[facility] [place] Clinical Impression: Conjunctivitis Qualifiers: Conjunctivitis type: unspecified Laterality: left Qualified Code(s): H10.9 - Unspecified conjunctivitis Disposition: Home, Self-Care Condition on Discharge: Good Instructions: DI for Conjunctivitis, Conjunctivitis, How to Instill Eye Drops Additional Instructions: Use eye drops as prescribed Follow at the [facility] if no improvement or any worsening of symptoms Return if needed Straight to ER if any life threatening symptoms *Warm salt water gargles may help to soothe the throat *Throat Lozenges *Warm fluids like tea with honey may help to soothe the throat *Sleep elevated *Humidifier/Vaporizer Your throat swab was sent for culture. Those results are typically sent to your primary care. Be sure to follow up in 2-3 days with your family doctor/primary care physician if no improvement so they can review those result and treat if necessary. If you don?t have a primary care doctor, I recommend you get one but in the mean time, you will have to return to a walk in clinic Follow up IMMEDIATELY for new or worsening symptoms or no Noticeable improvement over the next 48-72 hours. 911 for difficulty breathing or swallowing Prescriptions: Polymyxin B Sulf/Trimethoprim [Polytrim Ophth Soln 10mL Bottle] 2 drops EYE-LEFT Q6H 7 Days #1 bottle Transmission Status: Pending to [id number] Referrals: Provider,Referral, [Primary Care Provider] - Medical Decision Making - Zain Inquiry Pt receiving controlled substance: No Zain was queried for this patient: No Vital Signs: 12/02/20 10:55 Temperature 98.4 F Temperature Source Oral Pulse Rate [Left Brachial] 79 Respiratory Rate 18 Blood Pressure [Left Arm] 111/65 Blood Pressure Mean [Left Arm] 80 Blood Pressure Source [Left Arm] Automatic Cuff Blood Pressure Position [Left Arm] Sitting 02 Sat by Pulse Oximetry 100 Oxygen Delivery Method Room Air - Lab Data Lab Results 12/02/20 11:12: Strep Scn Rapid Clinic Negative Orders (Tests/Meds): ORDERS Category Date Time Status Strep Screen Confirmation Stat Micro 12/02/20 11:12 Received Medical Decision Narrative: Medication discussed with pharmacy [facility] [place]PI - General Stated complaint: possible pink eye Time Seen by Provider: 12/02/20 11:19 Mode of Arrival: Ambulatory Source of Information: Patient Limitations: No Limitations Description of Symptoms (Recalled from Triage Doc. by RN): PATIENT C/O REDNESS AND PAIN TO LEFT EYE SINCE MONDAY AND SORE THROAT SINCE THIS MORNING. SON DX WITH STREP ON MONDAY HEENT Symptoms (Recalled from RN notes): Yes Resp Symptoms (Recalled from RN notes): No Skin Symptoms (Recalled from RN notes): No MS Symptoms (Recalled from RN notes): No Functional Status (Recalled from RN notes): WNL - History of Present Illness Provider Complaint: Patient states that she has been having redness and feeling of soreness in left eye since Monday States that redness has continued to get worse and she has been having some drainage and matting State that also this morning when she woke up she had sore throat and son was Dx with strep throat a couple days ago and wanted to get checked - Related Data Previous Rx's Medication Instructions Recorded Polymyxin B Sulf/Trimethoprim 2 drops EYE-LEFT Q6H 7 Days #1 12/02/20 [Polytrim Ophth Soln 10mL Bottle] bottle Allergies Allergy/AdvReac Type Severity Reaction Status Date / Time Sulfa (Sulfonamide Allergy Mild I-RASH Verified 08/04/17 09:50 Antibiotics) [SULFA (SULFONAMIDE ANTIBIOTICS)] - Worker's Comp Is this a Worker's Comp case?: No [facility] History - Hepatitis A Screen Drug use history?: No High risk sexual behaviors?: No History of sexually transmitted infection?: No Currently employed?: No Childcare worker?: No Do you have indoor plumbing?: Yes Do you have electricity?: Yes Attestation statement:: This patient has
[2020-12-02 11:26] VITALS: BP 111/65; PULSE 79; RESP 18; TEMP 36.9; O2SAT 100
== END 2020-12-02 11:35 | disposition home or self-care (01) ==
PROVIDERS: Emergency Provider Nurse Practitioner
DX: H10.32 Unspecified acute conjunctivitis, left eye (principal)
CPT/HCPCS: 87880; 99202; G0463

== ENCOUNTER 2020-12-30 21:29 | Emergency (ER) | payer BC, SELFPAY ==
[2020-12-30 21:31] VITALS: BP 122/79; PULSE 95; RESP 18; TEMP 37.3; O2SAT 100; BMI 28.1
--- NOTE | 2020-12-30 21:41 | XR_ITS ---
PROCEDURE INFORMATION: Exam: XR Chest Exam date and time: 12/30/2020 9:41 PM Age: 25 years old Clinical indication: Shortness of breath and other: General weakness covid positive; Patient HX: Covid positive SOB weakness; Additional info: SOA TECHNIQUE: Imaging protocol: XR of the chest. Views: 2 views. COMPARISON: [id number] CT abdomen pelvis wo con 07/07/2017 11:21 PM FINDINGS: Lungs: No consolidation. Pleural spaces: Unremarkable. No pleural effusion. No pneumothorax. Heart/Mediastinum: Unremarkable. No cardiomegaly. Bones/joints: Unremarkable. IMPRESSION: No acute findings.
--- NOTE | 2020-12-30 21:44 | ECG_ITS ---
APPROVED REPORT Exam: Resting ECG HR:53 bpm ECG Measurements Heart Rate 53 AXES QRSd 78 QRS 55 QT 380 T 16 QTc 356 Conclusion Atrial fibrillation with slow ventricular response with a competing junctional pacemaker T wave abnormality, consider inferior ischemia or digitalis effect Abnormal ECG Electronically signed by : Charlie Marin, 01/03/2021 21:13:13
--- NOTE | 2020-12-30 21:55 | CT_ITS ---
PROCEDURE INFORMATION: Exam: CTA Chest With Contrast Exam date and time: 12/30/2020 9:55 PM Age: 25 years old Clinical indication: Shortness of breath and other: Covid positive weakness; Additional info: SOB, cp, covid+ RO pe TECHNIQUE: Imaging protocol: Computed tomographic angiography of the chest with contrast. 3D rendering (Not supervised by radiologist): MIP and/or 3D reconstructed images were created by the technologist. Radiation optimization: All CT scans at this facility use at least one of these dose optimization techniques: automated exposure control; mA and/or kV adjustment per patient size (includes targeted exams where dose is matched to clinical indication); or iterative reconstruction. Contrast material: ISOVUE 370; Contrast volume: 70 ml; Contrast route: INTRAVENOUS (IV); COMPARISON: CR XR CHEST 2V 12/30/2020 9:50 PM FINDINGS: Pulmonary arteries: Normal. No pulmonary emboli. Aorta: No aortic aneurysm. No aortic dissection. Lungs: Minimal dependent ground-glass pulmonary opacities. Pleural spaces: No pneumothorax. No pleural effusion. Heart: No cardiomegaly. No pericardial effusion. Lymph nodes: Partially calcified mediastinal lymph nodes. Spleen: There are multiple splenic calcifications likely on the basis of prior granulomatous exposure. Bones/joints: No acute fracture. Soft tissues: No significant swelling. IMPRESSION: Minimal dependent ground-glass pulmonary opacities which are likely hypoventilatory however potentially could be seen with a subtle atypical infectious or inflammatory process.
[2020-12-30 22:02] VITALS: BP 126/82; PULSE 78; O2SAT 95
[2020-12-30 22:02] LABS: Basophils % 0.8 % (0.1-2.0); Eosinophils % 0.2 % (0.1-12.0); Hematocrit 39.1 % (37.0-47.0); Hemoglobin 13.2 g/dL (12.2-16.2); Lymphocytes # 1.7 K/mm3 (0.7-4.5); Lymphocytes % 55.2 % (10-50); Mean Corpuscular HGB Conc 33.8 g/dL (31.8-35.4); Mean Corpuscular Hemoglobin 27.7 pg (27.0-31.2); Mean Corpuscular Volume 81.9 fl (81-99); Mean Platelet Volume 8.5 fl (7.4-10.4); Monocytes # 0.2 K/mm3 (0.1-1.0); Monocytes % 6.1 % (1.7-9.3); Neutrophils # 1.1 K/mm3 (1.8-7.8); Neutrophils % 37.6 % (37.0-80.0); Platelet Count 196 K/mm3 (142-424); Red Blood Count 4.78 M/mm3 (4.20-5.40); Red Cell Distribution Width 13.8 % (11.5-17.5)
[2020-12-30 22:05] LABS: Chloride 102 mmol/L (98-107); Sodium 139 mmol/L (136-145)
[2020-12-30 22:07] LABS: MANUAL DIFFERENTIAL MANUAL DIFFERENTIAL (MANUAL DIFF)
[2020-12-30 22:08] LABS: Alanine Aminotransferase 120 U/L (12-78); Albumin Level 4.4 g/dl (3.5-5.0); Albumin/Globulin Ratio 1.5 (1.1-1.8); Alkaline Phosphatase 97 U/L (38-126); Aspartate Amino Transferase 156 U/L (14-36); Bilirubin,Total 0.4 mg/dl (0.2-1.3); Blood Urea Nitrogen 13 mg/dl (7-17); Carbon Dioxide 28 mmol/L (22.0-30.0); Creatinine Clearance Estimated 122 mL/min (50-200); Estimated Glomerular Filt Rate 76 ml/min (>60); GFR (African American) 92 ML/MIN (>60); Total Protein,Serum 7.4 g/dl (6.3-8.2)
[2020-12-30 22:09] LABS: Calcium 8.7 mg/dl (8.4-10.2); Glucose 108 mg/dl (74-100); Lactic Acid 1.2 mmol/L (0.7-2.1)
[2020-12-30 22:17] LABS: HCG Qualitative, Serum Negative (Negative)
[2020-12-30 22:24] LABS: Troponin I < 0.01 ng/ml (0.00-0.034)
[2020-12-30 22:29] LABS: Lymphocytes % 60 % (10-50); Monocytes % 5 % (2-9); Neutrophils % 35 % (42-76); Platelet Estimate Normal; Total Cells Counted 100
[2020-12-30 22:31] LABS: Hypochromasia 1+
--- NOTE | 2020-12-30 22:46 | PC.NURSE ---
patient in radiology for CT
--- NOTE | 2020-12-30 23:15 | ECG_ITS ---
APPROVED REPORT Exam: Resting ECG HR:66 bpm ECG Measurements Heart Rate 66 AXES MT 134 P 28 QRSd 84 QRS 32 QT 384 T 17 QTc 402 Conclusion Normal sinus rhythm Late r wave progression Abnormal ECG Electronically signed by : Charlie Marin, 01/03/2021 21:12:56
[2020-12-30 23:59] VITALS: BP 123/76; PULSE 78; RESP 18; TEMP 36.6; O2SAT 98
--- NOTE | 2020-12-31 00:02 | HMH.EDGENADL ---
ED Disposition Clinical Impression: COVID-19 Disposition: Home, Self-Care Condition on Discharge: Good Referrals: Provider,Referral, [Primary Care Provider] - - Critical Care Critical Care Time: No Attestation: On 12/30/20, the high probability of a clinically significant, sudden or life threatening deterioration of the following system(s) required my full and direct attention, intervention and personal management. The time I documented below is in addition to time spent performing reported procedures but includes the following listed in this critical care notation. Medical Decision Making - Zain Inquiry Pt receiving controlled substance: No Vital Signs: 12/30/20 21:31 12/30/20 22:02 Temperature 99.2 F Temperature Source Oral Pulse Rate 78 Pulse Rate [Right] 95 H Respiratory Rate 18 Blood Pressure 126/82 Blood Pressure [Right Arm] 122/79 Blood Pressure Mean [Right Arm] 93 02 Sat by Pulse Oximetry 100 95 - Lab Data Lab Results 12/30/20 21:50: WBC 3.0 L, RBC 4.78, Hgb 13.2, Hct 39.1, MCV 81.9, MCH 27.7, MCHC 33.8, RDW 13.8, Plt Count 196, MPV 8.5, Neut % (Auto) 37.6, Lymph % (Auto) 55.2 H, [place] % (Auto) 6.1, Eos % (Auto) 0.2, Baso % (Auto) 0.8, Neut # (Auto) 1.1 L, Lymph # (Auto) 1.7, [place] # (Auto) 0.2, Eos # (Auto) 0.0, Baso # (Auto) 0.0, Total Counted 100, Neutrophils % (Manual) 35 L, Lymphocytes % (Manual) 60 H, Monocytes % (Manual) 5, Platelet Estimate Normal, Hypochromasia 1+ 12/30/20 21:50: Sodium 139, Potassium 3.0 L, Chloride 102, Carbon Dioxide 28, Anion Gap 12.0, BUN 13, Creatinine 0.90, Estimated Creat Clear 122, Estimated GFR 76, Est GFR ( Amer) 92, Glucose 108 H, Calcium 8.7, Total Bilirubin 0.4, AST 156 H, ALT 120 H, Alkaline Phosphatase 97, Troponin I < 0.01, Total Protein 7.4, Albumin 4.4, Globulin 3.0, Albumin/Globulin Ratio 1.5 12/30/20 21:50: Lactate 1.2 12/30/20 21:50: Serum HCG, Qual Negative Result diagrams: 12/30/20 21:50 12/30/20 21:50 Orders (Tests/Meds): ED MEDICATIONS Generic Name Dose Route Start Last Admin Trade Name Frekamini PRN Reason Stop Dose Admin Lactated Ringer's 1,000 mls @ 999 mls/hr 12/30/20 21:45 12/30/20 21:45 Lactated Ringer's 1000 Ml Bag IV 12/30/20 22:45 999 mls/hr .Q1H1M LOTTIE Administration Discontinued Medications Generic Name Dose Route Start Last Admin Trade Name Freq PRN Reason Stop Dose Admin Dexamethasone Sodium Phosphate 10 mg 12/30/20 21:45 12/30/20 21:45 Dexamethasone 4mg/Ml 5ml Mdv IV 12/30/20 21:46 10 mg ONCE ONE Administration Iopamidol 70 ml 12/30/20 22:44 12/30/20 22:45 Iopamidol-370 (76%);100ml Bottle IV 12/30/20 22:45 70 ml ONCE ONE Administration Ketorolac Tromethamine 30 mg 12/30/20 21:44 12/30/20 21:45 Ketorolac 30mg/Ml Vial IV 12/30/20 21:45 30 mg ONCE ONE Administration Ondansetron HCl 4 mg 12/30/20 21:41 12/30/20 21:45 Ondansetron 4mg/2ml Vial IV 12/30/20 21:42 4 mg ONCE ONE Administration Potassium Chloride 40 meq 12/30/20 23:57 Potassium Chloride 20meq Tab PO 12/30/20 23:58 ONCE ONE Sodium Chloride 40 ml 12/30/20 22:44 12/30/20 22:45 0.9 % Sodium Chloride 50 Ml Vial IV 12/30/20 22:45 40 ml ONCE ONE Administration Sodium Chloride 10 ml 12/30/20 22:44 12/30/20 22:45 Sodium Chloride 0.9% 10ml Syr (Rad Only) IV 12/30/20 22:45 10 ml ONCE ONE Administration ORDERS Category Date Time Status Troponin I Q3H Lab 12/31/20 01:00 Ordered Troponin I Q3H Lab 12/31/20 04:00 Ordered Medical Decision Narrative: 5-year-old female who presents to the emergency department with headache, shortness of breath, chest pain, dizziness, nausea, and body aches. Differential diagnosis includes COVID-19, pneumonia, PE, ACS. On arrival the patient is anxious and appears ill. She was started on IV fluids, Zofran, Toradol, Decadron. CBC, CMP, troponin, CT PE, chest x-ray obtained. CT PE showed no evidence of clot however sh
== END 2020-12-31 00:22 | disposition home or self-care (01) ==
PROVIDERS: Emergency Provider Emergency Medicine
DX: U07.1 COVID-19 (principal); R06.02 Shortness of breath; R42 Dizziness and giddiness; R07.9 Chest pain, unspecified
CPT/HCPCS: 71046; 71275; 80053; 83605; 84484; 84703; 85007; 85025; 93005; 96365; 99283; J2405; Q9967

== ENCOUNTER → 2021-06-27 12:28 | Outpatient (CLI) | payer BC, SELFPAY | PROVIDERS: Visit Provider Nurse Practitioner Family | DX: U07.1 COVID-19 (principal) | CPT/HCPCS: C9803; U0003; U0005 ==

== ENCOUNTER 2021-07-24 09:29 | Emergency (ER) | payer BC, SELFPAY ==
[2021-07-24 09:30] VITALS: BP 126/73; PULSE 98; RESP 18; TEMP 36.6; O2SAT 95; BMI 28.3
--- NOTE | 2021-07-24 09:50 | HMH.EDUTC ---
[facility] – [place] Disposition Clinical Impression: Pharyngitis Qualifiers: Pharyngitis/tonsillitis etiology: unspecified etiology Qualified Code(s): J02.9 - Acute pharyngitis, unspecified URI (upper respiratory infection) Qualifiers: URI type: unspecified viral URI Qualified Code(s): J06.9 - Acute upper respiratory infection, unspecified Disposition: Home, Self-Care Condition on Discharge: Good Instructions: DI for Viral Upper Respiratory Infection -- Adult, DI for Strep Throat Additional Instructions: Start antibiotics today be sure to take it as ordered with the full length of time although you should start feeling better in 24-48 hours. Change toothbrush and toothpaste 24-48 hours after starting antibiotics Tylenol or Motrin as needed for fever or pain Encourage fluids, water, Gatorade, Powerade, try cold fluids, popsicles, ice cream will make it feel better You are contagious for 24 hours. Avoid kissing anyone, no eating or drinking after anyone. You are contagious. Follow-up the ER for new or worsening symptoms or no noticeable improvement over the next 24-48 hours. Follow-up with PCP this week. Prescriptions: Azithromycin [Zithromax 250mg tab] 250 mg PO DIRECTED #6 tab Transmission Status: Pending to [id number] Referrals: Reggie Domínguez [Primary Care Provider] - Time of Disposition: 09:58 Medical Decision Making - Zain Inquiry Pt receiving controlled substance: No Vital Signs: 07/24/21 09:30 Temperature 97.8 F Temperature Source Oral Pulse Rate [Right Brachial] 98 H Respiratory Rate 18 Blood Pressure [Right Arm] 126/73 Blood Pressure Mean [Right Arm] 90 Blood Pressure Source [Right Arm] Automatic Cuff Blood Pressure Position [Right Arm] Sitting 02 Sat by Pulse Oximetry 95 Oxygen Delivery Method Room Air [facility] [place] HPI - General Chief complaint: Urgent [facility] Stated complaint: fever, congestion Time Seen by Provider: 07/24/21 09:50 Mode of Arrival: Ambulatory Source of Information: Patient Limitations: No Limitations Description of Symptoms (Recalled from Triage Doc. by RN): PATIENT C/O CONGESTION, RUNNY NOSE, FEVER AND BODY ACHES THAT STARTED YESTERDAY MORNING HEENT Symptoms (Recalled from RN notes): Yes Resp Symptoms (Recalled from RN notes): No Skin Symptoms (Recalled from RN notes): No MS Symptoms (Recalled from RN notes): No Functional Status (Recalled from RN notes): WNL - History of Present Illness Provider Complaint: 26 yr old female presents for fever,body aches,nasal congestion,sinus pressure, and drainage since yesterday and worse today - Related Data Previous Rx's Medication Instructions Recorded Azithromycin [Zithromax 250mg 250 mg PO DIRECTED #6 tab 07/24/21 tab] Allergies Allergy/AdvReac Type Severity Reaction Status Date / Time Sulfa (Sulfonamide Allergy Mild I-RASH Verified 06/27/21 12:31 Antibiotics) [SULFA (SULFONAMIDE ANTIBIOTICS)] - Worker's Comp Is this a Worker's Comp case?: No [facility] History - Hepatitis A Screen Drug use history?: No High risk sexual behaviors?: No History of sexually transmitted infection?: No Currently employed?: No Childcare worker?: No Do you have indoor plumbing?: Yes Do you have electricity?: Yes Attestation statement:: This patient has been screened for Hepatitis A risk factors. I have reviewed the patient's past medical history: Yes Medical History: Denies:: Cancer, Diabetes Mellitus Type 1, Diabetes Mellitus Type 2, Hypertension, Internal Pacemaker, MRSA, Seizures Other Medical History: Denies: Blood Transfusion Reaction Laterality Cases: Bilateral: Tonsillectomy Other Surgeries: Yes: Appendectomy. No: Pacemaker Amputation: No Fractures: No - Social History Smoking Status: Never smoker Alcohol Intake: never Alcohol Intake Frequency:: other Substance Use Type: denies use Occupational Status: other Housing: house Household Members: spouse Family Hx:: Bleeding Dis
[2021-07-24 10:05] LABS: UTC Strep Screen (Rapid) Negative (Negative)
[2021-07-24 10:06] VITALS: BP 126/73; PULSE 98; RESP 18; TEMP 36.6; O2SAT 95
[2021-07-24 10:06] LABS: UTC Influenza A Antigen Negative (Negative); UTC Influenza B Antigen Negative (Negative)
== END 2021-07-24 10:33 | disposition home or self-care (01) ==
PROVIDERS: Emergency Provider Nurse Practitioner Family; PCP Internal Medicine
DX: J02.9 Acute pharyngitis, unspecified (principal); J06.9 Acute upper respiratory infection, unspecified
CPT/HCPCS: 87804; 87880; 99203; G0463

== ENCOUNTER 2022-03-12 13:09 | Emergency (ER) | payer BC, SELFPAY ==
--- NOTE | 2022-03-12 13:28 | XR_ITS ---
PROCEDURE INFORMATION: Exam: XR Chest Exam date and time: 03/12/2022 1:28 PM Age: 26 years old Clinical indication: Cough and shortness of breath; Additional info: Cough, flu + TECHNIQUE: Imaging protocol: Radiologic exam of the chest. Views: 2 views. COMPARISON: CR XR CHEST 2V 12/30/2020 9:50 PM FINDINGS: Lungs: Unremarkable. No consolidation. Pleural spaces: Unremarkable. No pleural effusion. No pneumothorax. Heart/Mediastinum: Unremarkable. No cardiomegaly. Bones/joints: Unremarkable. IMPRESSION: No acute findings.
[2022-03-12 13:38] VITALS: BP 126/72; PULSE 81; RESP 16; TEMP 36.6; O2SAT 97; BMI 28.1
--- NOTE | 2022-03-12 13:49 | EXP.UTC ---
Discharge Plan Disposition Patient Disposition: Home, Self-Care Condition: Good Prescriptions Prescriptions: New promethazine-DM 6.25-15 mg/5 mL Syrup 5 ml PO Q6H PRN (Reason: Cough) Qty: 240 0RF azithromycin [Zithromax] 250 mg tablet 250 mg PO UD DOSE PK Qty: 6 0RF Rx Instructions: Take two (2) tablets today, then one (1) tablet days #2 thru #5 benzonatate [benzonatate] 100 mg capsule 100 mg PO TIDP PRN (Reason: Cough) Qty: 30 0RF methylprednisolone 4 mg Tablets,Dose Pack 4 mg PO DIRECTED Qty: 21 0RF No Action azithromycin 250 MG tablet 250 mg PO DIRECTED Qty: 6 0RF Rx Instructions: Take two (2) tablets on day #1, then one (1) tablet day #2 thru #5 Referrals Follow up/Referrals: Reggie Domínguez [Primary Care Provider] - See instructions Activity Restrictions/Add. Instructions Additional Instructions/Restrictions: Drink plenty of fluids. Take tylenol or ibuprofen for pain or fever. Take the medications as directed. Follow up with your regular doctor. GO TO THE ER FOR ANY WORSENING SYMPTOMS The cough medication (promethazine dm) will make you drowsy, so don't drive or operate heavy machinery after taking it. Clinical Impressions Clinical Impression: Acute bronchitis Instructions Patient Instructions: DI for Acute Bronchitis Discharge ED Provider: Ugo Rao [facility] [place] HPI General Stated complaint: cough Mode of Arrival: Ambulatory Source of Information: Patient Limitations: No Limitations Time Seen by Provider: 03/12/22 13:51 Description of Symptoms (Recalled from Triage Doc. by RN): pt is flu + and comes in with c/o cough that she is unable to get rid of HEENT Symptoms (Recalled from RN notes): No Resp Symptoms (Recalled from RN notes): Yes Skin Symptoms (Recalled from RN notes): No MS Symptoms (Recalled from RN notes): No Functional Status (Recalled from RN notes): n/a History of Present Illness Provider Complaint: She states that she has had influenza along with the rest of her family for the past 5 days. She states that her fever has resolved, but she his having a worsening cough. She thinks that she is getting bronchitis like she has in the past from influenza. Related Data Previous Rx's Medication Instructions Recorded azithromycin 250 mg tablet 250 mg PO DIRECTED #6 tabs 07/24/21 azithromycin 250 mg tablet 250 mg PO UD DOSE PK #6 tabs 03/12/22 (Zithromax) benzonatate 100 mg capsule 100 mg PO TIDP PRN Cough #30 caps 03/12/22 methylprednisolone 4 mg tablets in 4 mg PO DIRECTED #21 tabs 03/12/22 a dose pack promethazine-DM 6.25 mg-15 mg/5 mL 5 ml PO Q6H PRN Cough #240 mL 03/12/22 oral syrup Allergies Allergy/AdvReac Type Severity Reaction Status Date / Time Sulfa (Sulfonamide Allergy Mild I-RASH Verified 03/12/22 13:40 Antibiotics) [SULFA (SULFONAMIDE ANTIBIOTICS)] Worker's Comp Is this a Worker's Comp case?: No PFSH PFSH Social History Smoking Status: Never smoker alcohol intake: never counseling provided: provider counseling substance use type: denies use current occupational status: other Travel in the last 8 weeks: None household members: spouse housing: house current occupation: teacher current occupational exposures/hazards: No caffeine: Yes ROS Obtained: Yes All systems reviewed & no additional complaints except as documented Constitutional Constitutional: Reports chills and Reports fever(s) Eyes Eyes: Denies eye discharge ENT Ears, Nose, Mouth, and Throat: Reports as per HPI Cardiovascular Cardiovascular: Denies chest pain Respiratory Respiratory: Denies chest congestion and Reports cough Gastrointestinal Gastrointestingal: Reports nausea; Denies abdominal pain, constipation, cramping, diarrhea or vomiting Musculoskeletal Musculoskeletal: Denies arthralgias Integumentary/Breasts Skin/Breast: Denies ra
[2022-03-12 14:41] VITALS: BP 126/72; PULSE 81; RESP 16; TEMP 36.6
== END 2022-03-12 14:42 | disposition home or self-care (01) ==
PROVIDERS: Emergency Provider Nurse Practitioner Family; PCP Internal Medicine
DX: R05.9 Cough, unspecified (principal); R11.0 Nausea; Z79.52 Long term (current) use of systemic steroids; Z88.2 Allergy status to sulfonamides
CPT/HCPCS: 71046; 99213; G0463

== ENCOUNTER 2022-10-06 19:30 | Emergency (ER) | payer BC, SELFPAY ==
[2022-10-06 19:41] VITALS: BP 119/73; PULSE 80; RESP 18; TEMP 36.9; O2SAT 98; BMI 28.5
--- NOTE | 2022-10-06 19:58 | EXP.UTC ---
Discharge Plan Disposition Patient Disposition: Home, Self-Care Condition: Good Prescriptions Prescriptions: New ofloxacin 0.3 % drops See Rx Instructions .ROUTE .COMPLEX Qty: 10 0RF Rx Instructions: put 1-2 drps into affected eye(s) every 2-4 h x 2 days, then 1-2 drps 4 times/day days 3-7 fluticasone propionate [Flonase Allergy Relief] 50 mcg/actuation spray,suspension 1 - 2 spray intranasal DAILY Qty: 16 0RF Rx Instructions: administer into each nostril No Action azithromycin 250 MG tablet 250 mg PO DIRECTED Qty: 6 0RF Rx Instructions: Take two (2) tablets on day #1, then one (1) tablet day #2 thru #5 promethazine-DM 6.25-15 mg/5 mL Syrup 5 ml PO Q6H PRN (Reason: Cough) Qty: 240 0RF azithromycin [Zithromax] 250 mg tablet 250 mg PO UD DOSE PK Qty: 6 0RF Rx Instructions: Take two (2) tablets today, then one (1) tablet days #2 thru #5 benzonatate [benzonatate] 100 mg capsule 100 mg PO TIDP PRN (Reason: Cough) Qty: 30 0RF methylprednisolone 4 mg Tablets,Dose Pack 4 mg PO DIRECTED Qty: 21 0RF Referrals Follow up/Referrals: Reggie Domínguez [Primary Care Provider] - See instructions Activity Restrictions/Add. Instructions Additional Instructions/Restrictions: Wash hands well before and after applying drops to eyes Clean matting from eyes with warm water and baby shampoo Use flonase as prescribed Over the counter Claritan may help with fluid in ears or other antihistamines like Benadryl or Sudafed Follow up with your Family Doctor or Eye Doctor if no improvement or any worsening of symptoms Clinical Impressions Clinical Impression: Eustachian tube dysfunction, Conjunctivitis Stand Alone Forms Stand Alone Forms: Work/School Release Instructions Patient Instructions: DI for Eustachian Tube Dysfunction-Adult, Eustachian Tube Dysfunction, Ofloxacin Ophthalmic Discharge ED [place] [facility] [place] General Stated complaint: Possible pink eye and right earache Mode of Arrival: Ambulatory Source of Information: Patient Limitations: No Limitations Time Seen by Provider: 10/06/22 19:58 Description of Symptoms (Recalled from Triage Doc. by RN): pt c/o itchy/red eyes and a R ear ache x2d HEENT Symptoms (Recalled from RN notes): Yes Resp Symptoms (Recalled from RN notes): No Skin Symptoms (Recalled from RN notes): No MS Symptoms (Recalled from RN notes): No Functional Status (Recalled from RN notes): wnl History of Present Illness Provider Complaint: Patient states that for the last couple days she has been having matting, drainage and redness to both eyes and pain and fullness in her left ear States this evening it was still bothering her and her eyes was getting worse so she came in Related Data Previous Rx's Medication Instructions Recorded azithromycin 250 mg tablet 250 mg PO DIRECTED #6 tabs 07/24/21 azithromycin 250 mg tablet 250 mg PO UD DOSE PK #6 tabs 03/12/22 (Zithromax) benzonatate 100 mg capsule 100 mg PO TIDP PRN Cough #30 caps 03/12/22 methylprednisolone 4 mg tablets in 4 mg PO DIRECTED #21 tabs 03/12/22 a dose pack promethazine-DM 6.25 mg-15 mg/5 mL 5 ml PO Q6H PRN Cough #240 mL 03/12/22 oral syrup fluticasone propionate 50 1 - 2 spray intranasal DAILY #16 10/06/22 mcg/actuation nasal grams spray,suspension (Flonase Allergy Relief) ofloxacin 0.3 % eye drops See Rx Instructions ophthalmic 10/06/22 (eye) .COMPLEX #10 mL Allergies Allergy/AdvReac Type Severity Reaction Status Date / Time Sulfa (Sulfonamide Allergy Mild I-RASH Verified 10/06/22 19:44 Antibiotics) [SULFA (SULFONAMIDE ANTIBIOTICS)] Worker's Comp Is this a Worker's Comp case?: No [facility] Disclaimer: The information contained in this section may have been updated after the patient was seen, as this information can be updated by other users. Social History Chhaya
[2022-10-06 20:11] VITALS: BP 119/73; PULSE 80; RESP 18; TEMP 36.9
== END 2022-10-06 20:12 | disposition home or self-care (01) ==
PROVIDERS: Emergency Provider Nurse Practitioner; PCP Internal Medicine
DX: H69.82 Other specified disorders of Eustachian tube, left ear (principal); H10.33 Unspecified acute conjunctivitis, bilateral
CPT/HCPCS: 99212; 99214; G0463

== ENCOUNTER 2023-02-24 17:42 | Emergency (ER) | payer BC, SELFPAY ==
--- NOTE | 2023-02-24 17:51 | EXP.UTC ---
Discharge Plan Disposition Patient Disposition: Home, Self-Care Condition: Good Prescriptions Prescriptions: New promethazine-DM 6.25-15 mg/5 mL syrup 5 ml PO Q6H PRN (Reason: Cough) Qty: 180 0RF benzonatate 200 mg capsule 200 mg PO TID PRN (Reason: cough) Qty: 30 0RF Referrals Follow up/Referrals: Reggie Domínguez [Primary Care Provider] - See instructions Clinical Impressions Clinical Impression: Cough Instructions Patient Instructions: DI for Cough -- Adult Discharge ED Provider: Alma Rosa Feldman [facility] General Stated complaint: cough ears Time Seen by Provider: 02/24/23 18:22 History of Present Illness Provider Complaint: Cough, ear pain, congestion X 1 week. Coughing so much that she cannot rest. Onset (ago): week(s) (1) Location: chest Related Data Previous Rx's Medication Instructions Recorded benzonatate 200 mg capsule 200 mg PO TID PRN cough #30 caps 02/24/23 promethazine-DM 6.25 mg-15 mg/5 mL 5 ml PO Q6H PRN Cough #180 mL 02/24/23 oral syrup Allergies Allergy/AdvReac Type Severity Reaction Status Date / Time Sulfa (Sulfonamide Allergy Mild I-RASH Verified 10/06/22 19:44 Antibiotics) [SULFA (SULFONAMIDE ANTIBIOTICS)] [facility] Disclaimer: The information contained in this section may have been updated after the patient was seen, as this information can be updated by other users. Social History Smoking Status: Never smoker alcohol intake: never counseling provided: provider counseling substance use type: denies use current occupational status: other Travel in the last 8 weeks: None household members: spouse housing: house current occupation: teacher current occupational exposures/hazards: No caffeine: Yes ROS Obtained: Yes All systems reviewed & no additional complaints except as documented Respiratory Respiratory: Reports chest congestion and Reports cough Physical Exam General General appearance: alert and in no apparent distress Head Head exam: atraumatic, normocephalic and normal inspection Eye Eye exam: Present normal appearance, PERRL and EOMI ENT ENT exam: Present normal exam, normal oropharynx, mucous membranes moist, TM's normal bilaterally and normal external ear exam Neck Neck exam: Present normal inspection, full ROM and trachea midline; Absent meningismus or lymphadenopathy Chest Chest inspection: Present normal inspection and symmetric chest wall rise; Absent tenderness Respiratory Respiratory exam: Present wheezes; Absent respiratory distress Cardiovascular Cardiovascular exam: Present regular rate and normal rhythm; Absent JVD Abdominal Exam Abdominal exam: Present soft and normal bowel sounds; Absent distention, tenderness or guarding Extremities Exam Extremities exam: Present normal inspection, full ROM and normal capillary refill; Absent calf tenderness Back Exam Back exam: Present normal inspection; Absent tenderness Neurological Exam Neurological exam: Present alert and oriented X3 Psychiatric Psychiatric exam: Present normal affect and normal mood Skin Skin exam: Present warm, dry, intact and normal color Lymphatic Lymphatic Findings: no adenopathy Medical Decision Making Zain Inquiry Pt receiving controlled substance: No
[2023-02-24 18:10] VITALS: BP 110/69; PULSE 78; RESP 19; TEMP 36.7; O2SAT 99; BMI 24.4
[2023-02-24 18:32] VITALS: BP 110/69; PULSE 78; RESP 19; TEMP 36.7; O2SAT 99
[2023-02-24 18:33] LABS: UTC Strep Screen (Rapid) Negative (Negative)
== END 2023-02-24 18:35 | disposition home or self-care (01) ==
PROVIDERS: Emergency Provider Physician Assistant; PCP Internal Medicine
DX: R05.8 Other specified cough (principal)
CPT/HCPCS: 87880; 99212; 99214; G0463

== ENCOUNTER 2023-10-15 18:29 | Emergency (ER) | payer BC, SELFPAY ==
[2023-10-15 18:55] VITALS: BP 125/84; PULSE 78; RESP 20; TEMP 36.8; O2SAT 100; BMI 25.0
--- NOTE | 2023-10-15 19:39 | EXP.UTC ---
Discharge Plan Disposition Patient Disposition: Home, Self-Care Condition: Good Prescriptions Prescriptions: No Action No Known Home Medications Referrals Follow up/Referrals: Provider,Referral, MD [Primary Care Provider] - See instructions Activity Restrictions/Add. Instructions Additional Instructions/Restrictions: GO home lay down and sleep off remainder of migraine headache Follow up with your Family Doctor for furhter evaluation and discussion of migraine medications Straight to ER if any life threatening symptoms Clinical Impressions Clinical Impression: Migraine Stand Alone Forms Stand Alone Forms: Work/School Release Instructions Patient Instructions: DI for Migraine, Migraine -- Adult Discharge ED Provider: Melonie Wang [facility] [place] General Stated complaint: chronic headache Mode of Arrival: Ambulatory Source of Information: Patient Limitations: No Limitations Time Seen by Provider: 10/15/23 19:39 Description of Symptoms (Recalled from Triage Doc. by RN): PATIENT C/O MIGRAINE SINCE MONDAY MORNING HEENT Symptoms (Recalled from RN notes): Yes Resp Symptoms (Recalled from RN notes): No Skin Symptoms (Recalled from RN notes): No MS Symptoms (Recalled from RN notes): No Functional Status (Recalled from RN notes): WNL History of Present Illness Provider Complaint: Patient states that she has a hx of migraine headaches States that she started on Monday with migraine and she has taken Nurtec but hasnt helped States that she has had to come in before and get the migraine cocktail so tonight when it wasnt any better she came in to get it States that this migraine is like others she has had in past Related Data Home Medications Medication Instructions Recorded Confirmed No Known Home Medications 05/03/23 10/15/23 Allergies Allergy/AdvReac Type Severity Reaction Status Date / Time Sulfa (Sulfonamide Allergy Mild I-RASH Verified 05/03/23 13:56 Antibiotics) [SULFA (SULFONAMIDE ANTIBIOTICS)] Worker's Comp Is this a Worker's Comp case?: No [facility] Disclaimer: The information contained in this section may have been updated after the patient was seen, as this information can be updated by other users. Medical History (Updated 10/15/23 @ 19:49 by Melonie Wang APRN) Migraine Cough Conjunctivitis Eustachian tube dysfunction Acute bronchitis COVID-19 Conjunctivitis Sinusitis Headache Pharyngitis Otitis media UTI (urinary tract infection) Pelvic pain Acute appendicitis Abdominal pain Surgical History (Updated 05/12/24 @ 19:17 by Georgia Valencia RN) History of tonsillectomy History of section History of appendectomy Family History (Updated 05/03/23 @ 13:58 by Lida Muñoz MA) Family/Other No significant family history Social History Smoking Status: Never smoker alcohol intake: never counseling provided: provider counseling substance use type: denies use current occupational status: other Travel in the last 8 weeks: None household members: spouse housing: house current occupation: teacher current occupational exposures/hazards: No caffeine: Yes ROS Obtained: Yes All systems reviewed & no additional complaints except as documented and Yes Systems reviewed as appropriate & no additional complaints except as documented Constitutional Constitutional: Reports system reviewed and no additional complaints, except as documented, Reports as per HPI, Reports headache(s) and Denies weakness Eyes Eyes: Reports system reviewed and no additional complaints, except as documented, Reports as per HPI, Denies blurry vision, Denies change in vision and Denies loss of vision ENT Ears, Nose, Mouth, and Throat: Reports system reviewed and no additional complaints, except as documented, Reports as per HPI, Denies disequilibrium, Denies dizziness, Reports headache(s) and Denies vertigo Cardiovascular Cardiovascular: Reports system reviewed and no additional complaints, except as documented and Reports as per HPI Respiratory Respiratory: Reports system reviewed and no additional complaints, except as documented and Reports as per HPI Neurologic Neurologic: Reports system reviewed and no additional complaints, except as documented, Reports as per HPI, Denies abnormal speech, Denies confusion, Denies convulsions, Denies disequilibrium, Denies dizziness, Reports headache(s), Denies lack of coordination, Denies loss of vision, Denies vertigo and Denies weakness Physical Exam General General appearance: alert and in no apparent distress Eye Eye exam: Present normal appearance, PERRL and EOMI Respiratory Respiratory exam: Present normal lung sounds bilaterally; Absent respiratory distress or wheezes Cardiovascular Cardiovascular exam: Present regular rate, normal rhythm and normal heart sounds Neurological Exam Neurological exam: Present alert, oriented X3 and normal gait Medical Decision Making Zain Inquiry Pt receiving controlled substance: No Zain was queried for this patient: No Vital Signs: 10/15/23 18:55 Temperature 98.2 F Temperature Source Oral Pulse Rate [Left Brachial] 78 Respiratory Rate 20 Blood Pressure [Left Arm] 125/84 Blood Pressure Mean [Left Arm] 97 Blood Pressure Source [Left Arm] Automatic Cuff Blood Pressure Position [Left Arm] Sitting 02 Sat by Pulse Oximetry 100 Oxygen Delivery Method Room Air Medical Decision Narrative: Patient denies states that she has had ablation and called mother to come and pick her up After medication patient states that headache is improving and ready to go home
[2023-10-15] MEDS: KETOROLAC 60MG/2ML VIAL 60 MG IM (19:58)
[2023-10-15] MEDS: diphenhydrAMINE 50MG/ML VIAL 25 MG IM (19:58)
[2023-10-15] MEDS: METOCLOPRAMIDE 10MG TABLET 10 MG PO (19:58)
[2023-10-15 20:10] VITALS: BP 125/84; PULSE 78; RESP 20; TEMP 36.8; O2SAT 100
== END 2023-10-15 20:15 | disposition home or self-care (01) ==
PROVIDERS: Emergency Provider Nurse Practitioner
DX: G43.909 Migraine, unspecified, not intractable, without status migrainosus (principal)
CPT/HCPCS: 96372; 99212; 99214; G0463